=== PATIENT | male | born 1970 | race Asian ===

== ENCOUNTER 2022-11-07 14:17 | Emergency (ER) | payer OTHER ==
[~2022-11-07] VITALS: Ht 134.6 cm; Wt 50.0 kg
[2022-11-07 20:17] VITALS: BP 138/96
== END 2022-11-07 20:26 | disposition home or self-care (01) ==
LOC: EMS 14:20
DX: I10 Essential (primary) hypertension (principal); E03.9 Hypothyroidism, unspecified; Z88.6 Allergy status to analgesic agent
CPT/HCPCS: 99283